=== PATIENT | female | born 1955 | race Caucasian/White ===

== ENCOUNTER → 2016-04-06 | Outpatient (CLI) | payer OTHER ==
[~2016-04-06] MED LIST: ALBUAER19 INH; CHOL2000; FLUT0.0529 NAE
--- NOTE | 2016-04-06 15:58 | MAMMOGRAPHY REPORT ---
BILATERAL DIGITAL SCREENING MAMMOGRAM TOMOSYNTHESIS WITH CAD: 04/06/2016 CLINICAL HISTORY: Routine screening. Patient has no complaints. TECHNIQUE: Breast tomosynthesis in addition to standard 2D mammography was performed. Current study was also evaluated with a Computer Aided Detection (CAD) system. COMPARISON: Comparison is made to exams dated: 04/04/2015 mammogram, 04/03/2014 mammogram, 04/11/2014 ultrasound, 04/02/2013 mammogram, 03/09/2012 mammogram, and 03/01/2011 mammogram - [facility]. BREAST COMPOSITION: The tissue of both breasts is almost entirely fatty. FINDINGS: No suspicious mass, architectural distortion or cluster of microcalcifications is seen. IMPRESSION: ACR BI-RADS CATEGORY 1: NEGATIVE There is no mammographic evidence of malignancy. A 1 year screening mammogram is recommended. The p atient will receive written notification of the results. Approximately 10% of breast cancers are not detected with mammography. A negative mammographic repor t should not delay biopsy if a clinically suggestive mass is present. Anika sellers/bert:04/06/2016 15:52:52 General Worker: Mikayla SWAIN(Lucy)(M), [facility] letter sent: Normal 1/2 BI-RADS Code: ACR BI-RADS Category 1: Negative
== END | disposition home or self-care (01) ==
LOC: C.MAMM 13:24
PROVIDERS: ATTEND Family Medicine
DX: Z12.31 Encounter for screening mammogram for malignant neoplasm of breast (principal)

== ENCOUNTER → 2016-07-19 | Outpatient (CLI) | payer OTHER ==
[2016-07-19 12:33] LABS: BLOOD UREA NITROGEN 16 mg/dl (7-18); CARBON DIOXIDE 28 mmol/L (21-32); CHLORIDE 105 mmol/L (98-107); CREATININE 0.69 mg/dl (0.60-1.20); GLUCOSE 110 mg/dl (70-99); POTASSIUM 4.5 mmol/L (3.5-5.1); SODIUM 141 mmol/L (136-145)
[2016-07-19 12:34] LABS: ESTIMATED AVERAGE GLUCOSE 154 mg/dl; HA1C FLAG Normal (Normal)
[2016-07-19 12:41] LABS: CALCIUM 9.3 mg/dl (8.5-10.1)
== END | disposition home or self-care (01) ==
LOC: C.LABBFT 10:35
PROVIDERS: ATTEND Family Medicine
DX: E11.9 Type 2 diabetes mellitus without complications (principal)

== ENCOUNTER → 2016-12-13 | Outpatient (CLI) | payer OTHER ==
[2016-12-13 17:40] LABS: BLOOD UREA NITROGEN 13 mg/dl (7-18); BUN/CREATININE RATIO 20.4 (10-20); CALCIUM 9.3 mg/dl (8.5-10.1); CARBON DIOXIDE 29 mmol/L (21-32); CHLORIDE 103 mmol/L (98-107); CREATININE 0.64 mg/dl (0.60-1.20); GLUCOSE 185 mg/dl (70-99); SODIUM 137 mmol/L (136-145)
[2016-12-13 18:09] LABS: ESTIMATED AVERAGE GLUCOSE 151 mg/dl; HA1C FLAG Normal (Normal)
== END | disposition home or self-care (01) ==
LOC: C.LABBFT 12:59
PROVIDERS: ATTEND Family Medicine
DX: E11.9 Type 2 diabetes mellitus without complications (principal)

== ENCOUNTER → 2017-04-07 | Outpatient (CLI) | payer OTHER ==
--- NOTE | 2017-04-08 14:42 | MAMMOGRAPHY REPORT ---
BILATERAL DIGITAL SCREENING MAMMOGRAM TOMOSYNTHESIS WITH CAD: 04/07/2017 CLINICAL HISTORY: Routine screening. Patient has no complaints. TECHNIQUE: Breast tomosynthesis in addition to standard 2D mammography was performed. Current study was also evaluated with a Computer Aided Detection (CAD) system. COMPARISON: Comparison is made to exams dated: 04/06/2016 mammogram, 04/04/2015 mammogram, 07/23/2014 ma mmogram, 07/23/2014 ultrasound biopsy, 04/03/2014 mammogram, and 04/02/2013 mammogram - [facility]. BREAST COMPOSITION: The tissue of both breasts is almost entirely fatty. FINDINGS: There are benign calcifications in both breasts. No suspicious mass, architectural distor tion or cluster of microcalcifications is seen. IMPRESSION: ACR BI-RADS CATEGORY 2: BENIGN There is no mammographic evidence of malignancy. A 1 year screening mammogram is recommended. The pa tient will receive written notification of the results. Approximately 10% of breast cancers are not detected with mammography. A negative mammographic report should not delay biopsy if a clinically suggestive mass is present. Anika Valiente M.D. ay/:04/07/2017 18:41:31 Repair Operator: Mikayla Schrader, [facility] letter sent: Normal 1/2 BI-RADS Code: ACR BI-RADS Category 2: Benign
== END | disposition home or self-care (01) ==
LOC: C.MAMM 13:39
PROVIDERS: ATTEND Nurse Practitioner
DX: Z12.31 Encounter for screening mammogram for malignant neoplasm of breast (principal)

== ENCOUNTER → 2017-05-31 | Outpatient (CLI) | payer OTHER ==
[2017-05-31 17:56] LABS: BLOOD UREA NITROGEN 15 mg/dl (7-18); CALCIUM 8.9 mg/dl (8.5-10.1); CARBON DIOXIDE 29 mmol/L (21-32); CREATININE 0.65 mg/dl (0.60-1.20); GLUCOSE 192 mg/dl (70-99); POTASSIUM 3.9 mmol/L (3.5-5.1); SODIUM 136 mmol/L (136-145)
[2017-05-31 17:59] LABS: CHOLESTEROL 209 mg/dl (0-200); LDL CHOLESTEROL CALCULATED 86 mg/dl
== END | disposition home or self-care (01) ==
LOC: C.LABPVFM 13:58
PROVIDERS: ATTEND Nurse Practitioner
DX: E11.9 Type 2 diabetes mellitus without complications (principal); E78.00 Pure hypercholesterolemia, unspecified

== ENCOUNTER 2023-08-11 07:37 | Inpatient (IN) ==
--- NOTE | 2023-08-11 08:26 | XRay Report ---
XR chest 1V portable CLINICAL HISTORY: Sepsis TECHNIQUE: Single frontal radiograph of the chest was obtained. Comparison: Comparison is made to chest radiograph 02/13/2023 FINDINGS: No lines and tubes are seen. The cardiomediastinal silhouette is normal. The lungs are clear. No evid ence of pleural effusion or pneumothorax. IMPRESSION: No acute abnormalities and in particular no radiographic evidence of pneumonia. ACT 112: Negative or not required by law. Electronically signed by: Efraín Land M.D. 08/11/2023 8:24 AM
--- NOTE | 2023-08-11 08:29 | Emergency Department Note ---
Impression & Plan Cellulitis of left leg, Bacteremia ED Provider Note HISTORY OF PRESENT ILLNESS: Patient is a 68-year-old female presenting with worsening cellulitis on her left lower extremity. Patient was diagnosed with cellulitis 4 days ago. She started on Keflex. She had positive blood cultures during her workup and was called back to the emergency room yesterday. Her white blood cell count was considered to be negative and she was given a dose of IV antibiotics and sent home. Reports that last night she developed worsening pain in her left medial thigh and noticed some erythema and streaking up her leg this morning. She had a fever 3 days ago. Reports her temperature was 99 this morning. She took another dose of Keflex this morning. She put IcyHot on the medial side with some improvement in her symptoms. She denies any nausea or vomiting. Reports feeling rundown and generally unwell. ROS: as above PHYSICAL EXAM: Constitutional: Patient appears in no acute distress. HENT: Head: Normocephalic and atraumatic. Eyes: EOMI, PERRL Mouth/Throat: Mucous membranes moist. Neck: Trachea midline. Neck supple. Cardiovascular: Bradycardic with regular rhythm. No murmurs, rubs or gallops. Intact distal pulses. Pulmonary/Chest: No respiratory distress. Breath sounds clear and equal bilaterally. No wheezes or rales. Abdominal: Abdomen soft, no tenderness, rebound or guarding. Musculoskeletal: No edema, tenderness or deformity noted. Skin: Warm and dry. Circular area of erythema and swelling to the left anterior patterson. There is lymphangitic streaking up the medial left lower leg, medial knee and medial upper thigh. Area is warm to touch. Intact DP/PT pulses. Psychiatric: Appropriate mood and affect for situation. Neurological: Alert and keenly responsive. CN II-XII grossly intact, moving all extremities equally and fully. MDM: - Vitals signs showed hypertension - History obtained via patient. History as above. - Chronic conditions affecting care: DM-2; vitamin D deficiency; HLD - Differential diagnoses include, but are not limited to: bacteremia; cellulitis; DVT; lymphedema - Order placed for continuous cardiac monitoring. At this time, monitor showed rate of 59 bpm with normal sinus rhythm, per my interpretation. - External medical records reviewed. Patient has been seen multiple times in the last 3 days in the emergency department. Yesterday she only had 1 culture that was growing gram-positive bacilli. - EKG interpreted by myself showed normal sinus rhythm. Rate bradycardic at 49 bpm. QT 423. No acute ischemic changes. - Laboratory workup interpreted by myself showed normal WBC; normal PT/INR; stable electrolytes; normal procalcitonin; normal troponin; normal lactate - Blood cultures obtained - CXR negative for pneumonia, per my interpretation - VBG normal - UA negative - On review of patient's chart, blood cultures obtained on 08/08/2023 grew gram- positive bacilli in 2 out of 2 bottles. - IV zosyn ordered - Discussion was had with case packer about patient's case and need for admission - [facility] Hospitalist, Dr. Escobar, consulted for admission - [facility]. ASSESSMENT AND PLAN: Diagnosis: left leg cellulitis; bacteremia Plan: admit Past Med/Surg History Problem List (Updated 08/11/23 @ 09:49 by Orquidea Machuca MD) Bacteremia (Acute) Cellulitis of left leg (Acute) Abnormal laboratory test result (Acute) Cellulitis (Acute) Pain and swelling of left lower extremity (Acute) Cellulitis of left lower extremity (Acute) Left shoulder pain Statin declined Hx of Lyme disease Hyperlipidemia refuses meds Fallen arches Foot pain, bilateral Tinnitus Fatigue Diverticula of colon History of diverticulitis Vitamin D deficiency (Chronic) Goiter diffuse, nontoxic (Chronic) Gait disorder (Chronic) Extrinsic asthma (Chronic) Diabetes mellitus (Chronic) refuses meds Cervical spondylosis without myelopathy (Chronic) Allergic rhinitis (Chronic) Ocular migraine Abdominal pain Medical History Umbilical hernia Vertigo takes meclizine nightly for vertigo Lyme disease Diabetes pt states does not take metformin, states diet controlled Ocular migraine Asthma mild- uses inhalers occasionally- mostly seasonal allergy induced Diverticulosis Surgical History History of tubal ligation History of hysterectomy Family History Sister Diabetes Grandmother Diabetes Mother Hypertension Father Lymphoma Denies family history of Ovarian cancer Prostate cancer Myocardial infarction Breast cancer Colorectal cancer Social History Smoking Status: Never smoker Second Hand Exposure: No; Do You Dip or Chew Tobacco: No; Hx Alcohol Use: No Hx Substance Use: No Preferred Language: Frisian Communication Ability: Effective Visual Impairment: Limited Hearing Ability: Normal Internet Marketing Director Required: No Beliefs That Will Affect Care: None marital status: Current Living Situation: Spouse current occupational status: retired How many Children do You have: 2 Feels Safe at Home: Yes Childhood Exposure to Second-Hand Smoke: No Diet: regular caffeine: Yes (coffee) during the past year weight has: remained stable Dental Care, Regularly: Yes Physical Activity Frequency: Daily Physical Activity Frequency Comment: Walking Seatbelt Use: always Sunscreen Use: Yes (sometimes) Assistive Devices: Glasses Allergies Allergies Allergy/AdvReac Type Severity Reaction Status Date / Time codeine AdvReac Unknown NAUSEA Verified 08/10/23 12:24 Home Meds Home Medications Medication Instructions Recorded Confirmed cholecalciferol (vitamin D3) 125 5,000 units PO QPM 11/28/18 08/10/23 mcg (5,000 unit) capsule magnesium 250 mg tablet 500 mg PO QPM 06/08/21 08/10/23 acetaminophen 500 mg tablet 500 mg PO QID PRN Pain 08/18/21 08/10/23 thiamine HCl (vitamin B1) 500 mg 500 mg PO DAILY 12/22/21 08/10/23 tablet cephalexin 500 mg capsule 500 mg PO Q6H 08/10/23 08/10/23 meclizine 25 mg tablet 25 mg PO TID PRN vertigo 08/10/23 08/10/23 Previous Rx's Medication Instructions Recorded fluticasone propionate 50 2 spray intranasal QPM #16 grams 12/23/22 mcg/actuation nasal spray,suspension albuterol sulfate 2.5 mg/3 mL 2.5 mg (3 mL) inhalation QID PRN 02/15/23 (0.083 %) solution for nebulization shortness of breath or wheezing #90 mL albuterol sulfate 90 mcg/actuation 2 inh inhalation QID PRN shortness 02/15/23 aerosol inhaler (Ventolin HFA) of breath or wheezing #8.5 grams Results & Data (ED) Vital Signs Vital Signs - 24 hr 08/11/23 07:56 08/11/23 08:31 08/11/23 08:31 Temperature 36.4 C L Temperature Source Skin Pulse Rate 50 L 60 Pulse Rate [Apical] 49 L Respiratory Rate 20 18 18 Respiratory Effort / Characteristics Non-Labored Spontaneous Non-Labored Spontaneous Respiratory Depth Normal Normal Respiratory Pattern Regular Regular Blood Pressure 154/71 H Blood Pressure [Right Arm] 128/59 L Blood Pressure Mean 98 Blood Pressure Mean [Right Arm] 82 Blood Pressure Position [Right Arm] Lying Pulse Oximetry 97 97 96 Oxygen Delivery Method Room Air Room Air Room Air Sepsis Recent Fever Within 48 Hours No Sepsis New/Unexplained Change in Mental Status N/A Sepsis Action Taken by Nursing No Action Required 08/11/23 08:31 08/11/23 09:00 Temperature Temperature Source Pulse Rate 49 L Pulse Rate [Apical] 55 L Respiratory Rate 18 Respiratory Effort / Characteristics Non-Labored Spontaneous Respiratory Depth Normal Respiratory Pattern Regular Blood Pressure Blood Pressure [Right Arm] 147/86 H Blood Pressure Mean Blood Pressure Mean [Right Arm] 106 Blood Pressure Position [Right Arm] Lying Pulse Oximetry 99 Oxygen Delivery Method Room Air Sepsis Recent Fever Within 48 Hours Sepsis New/Unexplained Change in Mental Status Sepsis Action Taken by Nursing Laboratory Data 08/11/23 08:20 08/11/23 08:20 Lab Results 08/11/23 08/11/23 Range/Units 08:20 09:19 WBC 8.00 (4.8-10.8) K/ul RBC 3.73 L (4.20-5.40) M/uL Hgb 11.9 L (12.0-16.0) g/dl Hct 35.2 L (37.0-47.0) % MCV 94.4 (80.0-100.0) fL MCH 31.9 (25.0-34.0) pg MCHC 33.8 (32.0-36.0) g/dL RDW Std Deviation 47.9 H (36.4-46.3) fL RDW Coeff of Chuck 13.8 (11.5-14.5) % Plt Count 276 (130-400) K/uL MPV 8.8 L (9.4-12.4) fL Immature Gran % (Auto) 0.4 % Neut % (Auto) 62.8 % Lymph % (Auto) 25.5 % [place] % (Auto) 9.4 % Eos % (Auto) 1.3 % Baso % (Auto) 0.6 % Neut # (Auto) 5.03 (1.40-6.50) K/uL Lymph # (Auto) 2.04 (1.20-3.40) K/uL [place] # (Auto) 0.75 H (0.11-0.59) K/uL Eos # (Auto) 0.10 (0.00-0.50) K/uL Baso # (Auto) 0.05 (0.00-0.20) K/uL Immature Gran # (Auto) 0.03 (0.01-0.20) K/uL PT 10.7 (9.0-12.0) Seconds INR 1.0 (0.9-1.1) VBG pH 7.41 (7.36-7.41) VBG pCO2 47 (38-50) mmHg VBG pO2 29 mmHg VBG HCO3 30 mmol/L VBG O2 Saturation < 60.0 % VBG Base Excess 4.3 mEq/L Sodium 138 (136-145) mmol/L Potassium 4.2 (3.5-5.1) mmol/L Chloride 104 (98-107) mmol/L Carbon Dioxide 26 (21-32) mmol/L Anion Gap 8 (3-11) BUN 13 (6-23) mg/dl Creatinine 0.49 L (0.6-1.2) mg/dl Est Cr Clr Drug Dosing 106.6 ml/min Est GFR ( Amer) 115.2 ml/min Est GFR (Non-Af Amer) 99.4 ml/min BUN/Creatinine Ratio 26.5 H (10-20) Glucose 141 H (70-99(Fasting)) mg/dl Lactate 1.0 (0.4-2.0) mmol/L Calcium 9.4 (8.6-10.3) mg/dl Magnesium 2.0 (1.7-2.4) mg/dl Total Bilirubin 0.5 (0.2-1.0) mg/dl Direct Bilirubin 0.1 (0-0.2) mg/dl AST 17 (13-39) U/L ALT 13 (7-52) U/L Alkaline Phosphatase 65 (34-104) U/L Troponin I High Sens 4.8 (0-14) pg/ml Total Protein 7.4 (6.0-8.3) gm/dl Albumin 4.4 (3.4-5.0) gm/dl Procalcitonin 0.23 (0-0.5) ng/ml Urine Color Yellow Urine Appearance Clear (Clear) Urine pH 6.0 (4.5-7.5) Ur Specific [place] 1.013 (1.000-1.030) Urine Protein Negative (Negative) Urine Glucose (UA) Negative (Negative) Urine Ketones Negative (Negative) Urine Blood Negative (Negative) Urine Nitrite Negative (Negative) Urine Bilirubin Negative (Negative) Urine Urobilinogen Negative (Negative) Ur Leukocyte Esterase Negative (Negative) Administered Medications Discontinued Medications Piperacillin Sod/Tazobactam Sod (Zosyn) 4.5 gm in 100 mls @ 200 mls/hr IV NOW ONE Stop: 08/11/23 10:01 Last Admin: 08/11/23 09:48 Dose: 200 mls/hr Documented By: SHEILA Imaging Data Radiologist's Impression: Chest X-Ray 08/11/23 07:43 XR chest 1V portable CLINICAL HISTORY: Sepsis TECHNIQUE: Single frontal radiograph of the chest was obtained. Comparison: Comparison is made to chest radiograph 02/13/2023 FINDINGS: No lines and tubes are seen. The cardiomediastinal silhouette is normal. The lungs are clear. No evidence of pleural effusion or pneumothorax. IMPRESSION: No acute abnormalities and in particular no radiographic evidence of pneumonia. ACT 112: Negative or not required by law. Electronically signed by: Efraín Land M.D. 08/11/2023 8:24 AM Discharge Plan Visit Data Chief Complaint: Infection Stated Complaint: cellulitis ED Provider: Orquidea Machuca Discharge Problem: Cellulitis of left leg, Bacteremia Forms Stand Alone Forms: My [facility] Prescriptions Prescriptions: No Action albuterol sulfate [Ventolin HFA] 90 mcg/actuation HFA aerosol inhaler 2 inh INH QID PRN (Reason: shortness of breath or wheezing) Qty: 8.5 3RF albuterol sulfate 2.5 mg /3 mL (0.083 %) solution for nebulization 2.5 mg inhalation QID PRN (Reason: shortness of breath or wheezing) Qty: 90 3RF cholecalciferol (vitamin D3) 5,000 unit capsule 5,000 units PO QPM fluticasone propionate 50 mcg/actuation spray,suspension 2 spray INTNAS QPM Qty: 16 11RF Rx Instructions: administer into each nostril magnesium 250 mg tablet 500 mg PO QPM thiamine HCl (vitamin B1) 500 mg tablet 500 mg PO DAILY acetaminophen 500 mg Tablet 500 mg PO QID PRN (Reason: Pain) meclizine 25 mg tablet 25 mg PO TID PRN (Reason: vertigo) Rx Instructions: 25 mg PO TAKE 1 TABLET DAILY, MAY INCREASE TO 3 TIMES DAILY IF NEEDED FOR VERTIGO. PRN; cephalexin 500 mg capsule 500 mg PO Q6H Rx Instructions: Start Date 08/09/23 x 10 day supply Referrals Referrals: Julieta Marino CRNP [Primary Care Provider] -
[2023-08-11 08:42] LABS: Base Excess VBG 4.3 mEq/L; HCO3 VBG 30 mmol/L; Oxygen Saturation VBG < 60.0 %; PCO2 VBG 47 mmHg (38-50); PO2 VBG 29 mmHg; pH VBG 7.41 (7.36-7.41)
[2023-08-11 08:46] LABS: Basophils # (auto) 0.05 K/uL (0.00-0.20); Basophils % (auto) 0.6 %; Eosinophils % (auto) 1.3 %; Hematocrit (blood only) 35.2 % (37.0-47.0); Hemoglobin 11.9 g/dl (12.0-16.0); Immature Granulocytes # (auto) 0.03 K/uL (0.01-0.20); Immature Granulocytes % (auto) 0.4 %; Lymphocytes # (auto) 2.04 K/uL (1.20-3.40); Lymphocytes % (auto) 25.5 %; Mean Corpuscular Hemoglobin 31.9 pg (25.0-34.0); Mean Corpuscular Hgb Conc 33.8 g/dL (32.0-36.0); Mean Corpuscular Volume 94.4 fL (80.0-100.0); Mean Platelet Volume 8.8 fL (9.4-12.4); Monocytes # (auto) 0.75 K/uL (0.11-0.59); Monocytes % (auto) 9.4 %; Neutrophils # (auto) 5.03 K/uL (1.40-6.50); Neutrophils % (auto) 62.8 %; Platelet Count 276 K/uL (130-400); RDW Coefficient of Variation 13.8 % (11.5-14.5); RDW Standard Deviation 47.9 fL (36.4-46.3); Red Blood Count 3.73 M/uL (4.20-5.40)
[2023-08-11 09:12] LABS: Prothrombin Time 10.7 Seconds (9.0-12.0)
[2023-08-11 09:13] LABS: Albumin Level 4.4 gm/dl (3.4-5.0); BUN Creatinine Ratio 26.5 (10-20); Bilirubin Direct 0.1 mg/dl (0-0.2); Bilirubin,Total 0.5 mg/dl (0.2-1.0); Calcium 9.4 mg/dl (8.6-10.3); Creatinine Clr Calc Pharmacy 106.6 ml/min; Est GFR (African American) 115.2 ml/min; Est GFR (Non-African American) 99.4 ml/min; Potassium 4.2 mmol/L (3.5-5.1); Total Protein 7.4 gm/dl (6.0-8.3)
[2023-08-11 09:19] LABS: Troponin I High Sensitivity 4.8 pg/ml (0-14)
[2023-08-11 09:41] LABS: Appearance Urine Clear (Clear); Bilirubin Urine Negative (Negative); Blood Urine Negative (Negative); Color Urine Yellow; Glucose Urine UA Negative (Negative); Ketones Urine Negative (Negative); Leukocyte Esterase Urine Negative (Negative); Nitrite Urine Negative (Negative); Protein Urine Negative (Negative); Specific Gravity Urine 1.013 (1.000-1.030); Urobilinogen Urine Negative (Negative)
[2023-08-11] MEDS: PIPERACILLIN/TAZOBACTAM 4.5 GM/100 ML BAG IV ONE (09:48)
--- NOTE | 2023-08-11 09:58 | History & Physical Report ---
Date of Service August 11, 2023 Assessment & Plan (1) Cellulitis of left leg: Plan: Patient reportedly hit her left lower leg on a shopping cart on 08/07, then developed erythema and warmth with lymphangitic streaking Hx of LLE cellulitis without broken skin CRP and ESR elevated Zosyn 4.5 g IV x 1 in the ED Blood culture drawn on 08/07 growing gram (+) bacilli Resulted in cornybacterium; no sensitivities to follow; ?contaminant Will cover empirically with vancomycin IV q24h for now Follow blood cultures drawn on 08/10 Acetaminophen as needed for pain/fever A.m. CBC, BMP, CRP, Mag (2) Bacteremia: Plan: No leukocytosis; afebrile Procalcitonin WNL Lactate WNL Unclear if blood cultures were contaminant, but will cover with vancomycin (as above) (3) History of shingles: Plan: Patient reports history of shingles x 3 on the left side of her body While current lymphangitic streaking does not follow a characteristic dermatome, shingles remains in the DDx at this time Could elevate inflammatory markers, and patient reports she did not break her skin on the shopping cart (4) Diabetes: Plan: Last A1c at 6.9% on 07/25/2023 Patient has declined metformin and other DM drugs in the past (per review of wellness visit on 07/01/2023) Loose SSI while inpatient with target BSG range 110-140mg/dL, CF 50, carb ratio 15 T2DM diet BSG ACHS Adjust regimen as needed (5) Vertigo: Plan: Meclizine as needed Plan Disposition: Admit to [facility] Full code T2DM diet VTE PPx: Lovenox 40 mg SQ q24h History of Present Illness Chief Complaint: Cellulitis, left lower leg injury Primary Care Provider: LENA Wraner Sofia is a pleasant 68-year-old female with PMH of diabetes mellitus, vertigo, tinnitus, allergic rhinitis, asthma, HLD, and Lyme disease. She presented to the ED on 08/10 for worsening cellulitis on her left leg with new lymphangitic streaking up the leg. Patient initially developed erythema on her LLE after striking her leg on a shopping cart over the weekend. She denies any breaks in skin or open skin. The erythema then worsens and began to spread up the medial aspect of her left upper leg the evening of 08/09. She applied Biofreeze to the skin, which did help with her pain. She also reports she has been in the ED on 08/07 and 08/09 and received IV antibiotics at those times; blood cultures drawn on 08/07 grew gram-positive bacilli, and patient was called and told to come to the ED for IV antibiotics. Patient took 1 dose of Keflex this morning around 0 630; she does not take any regular medications in the mornings. All of her medications are as needed. She relays a history of left lower extremity cellulitis in the past, mainly on the dorsal aspect of her left foot. In the past she has not needed to break skin for it to develop. She also relays a history of shingles x 3 always occurring on the left side of her body; mainly on the stomach, but 1 episode on the left posterior scalp. Associated symptoms include 1 episode of fever on Tuesday 08/08; temperature of 100.5 F; associated achiness, nausea, and headache. Patient denies vomiting, and reports that taking 2 Tylenol alleviated the fever. She also endorses some right neck pain, but believes it is secondary to sleeping on it poorly. She took 2 Tylenol this morning as well for 7/10 neck pain. No difficulty swallowing. No throat closure. She characterizes the pain in her left leg as a dull, achy pain; 2/10 at present; only hurts when moving/palpating. Patient denies smoking, tobacco use, and recent alcohol use. Patient is mildly hypertensive at 147/86 and bradycardic at 55 bpm at time of admission; vitals otherwise stable. ED course: Zosyn 4.5 g IV ROS: Patient endorses fever, chills, STRINGER, right-sided neck pain, nausea, and mild erythema/pain in the left leg. Patient denies night-sweats, dizziness, lightheadedness with walking, difficulty swallowing, swelling of right neck/throat closure, chest pain, chest palpitations, SOB, cough, wheezing, abdominal pain, vomiting, diarrhea, change in urinary/bowel habits, dysuria, burning with urination, blood in the urine/stool, or numbness/tingling in the legs. Allergies Allergy/AdvReac Type Severity Reaction Status Date / Time codeine AdvReac Unknown NAUSEA Verified 08/10/23 12:24 Home Medications Medication Instructions Recorded Confirmed Type cholecalciferol (vitamin D3) 125 5,000 units PO QPM 11/28/18 08/11/23 History mcg (5,000 unit) capsule magnesium 250 mg tablet 500 mg PO QPM 06/08/21 08/11/23 History acetaminophen 500 mg tablet 500 mg PO QID PRN Pain 08/18/21 08/11/23 History thiamine HCl (vitamin B1) 500 mg 500 mg PO DAILY 12/22/21 08/11/23 History tablet fluticasone propionate 50 2 spray intranasal QPM #16 grams 12/23/22 08/11/23 Rx mcg/actuation nasal spray,suspension albuterol sulfate 2.5 mg/3 mL 2.5 mg (3 mL) inhalation QID PRN 02/15/23 08/11/23 Rx (0.083 %) solution for nebulization shortness of breath or wheezing #90 mL albuterol sulfate 90 mcg/actuation 2 inh inhalation QID PRN shortness 02/15/23 08/11/23 Rx aerosol inhaler (Ventolin HFA) of breath or wheezing #8.5 grams cephalexin 500 mg capsule 500 mg PO Q6H 08/10/23 08/11/23 History meclizine 25 mg tablet 25 mg PO TID PRN vertigo 08/10/23 08/11/23 History Past Med/Surg History Problem List (Updated 08/11/23 @ 11:49 by Khris Bain PA-C) History of shingles Diabetes pt states does not take metformin, states diet controlled Bacteremia (Acute) Cellulitis of left leg (Acute) Abnormal laboratory test result (Acute) Cellulitis (Acute) Pain and swelling of left lower extremity (Acute) Cellulitis of left lower extremity (Acute) Left shoulder pain Statin declined Hx of Lyme disease Hyperlipidemia refuses meds Fallen arches Foot pain, bilateral Tinnitus Fatigue Diverticula of colon History of diverticulitis Vitamin D deficiency (Chronic) Goiter diffuse, nontoxic (Chronic) Gait disorder (Chronic) Extrinsic asthma (Chronic) Diabetes mellitus (Chronic) refuses meds Cervical spondylosis without myelopathy (Chronic) Allergic rhinitis (Chronic) Ocular migraine Abdominal pain Medical History Umbilical hernia Vertigo takes meclizine nightly for vertigo Lyme disease Diabetes pt states does not take metformin, states diet controlled Ocular migraine Asthma mild- uses inhalers occasionally- mostly seasonal allergy induced Diverticulosis Surgical History History of tubal ligation History of hysterectomy Family History Sister Diabetes Grandmother Diabetes Mother Hypertension Father Lymphoma Denies family history of Ovarian cancer Prostate cancer Myocardial infarction Breast cancer Colorectal cancer Social History Smoking Status: Never smoker Second Hand Exposure: No; Do You Dip or Chew Tobacco: No; Hx Alcohol Use: No Hx Substance Use: No Preferred Language: Sammarinese Communication Ability: Effective Visual Impairment: Limited Hearing Ability: Normal Court Bailiff Required: No Beliefs That Will Affect Care: None marital status: Current Living Situation: Spouse current occupational status: retired How many Children do You have: 2 Feels Safe at Home: Yes Safety Concerns: Feels Safe At This Time Childhood Exposure to Second-Hand Smoke: No Diet: regular caffeine: Yes (coffee) during the past year weight has: remained stable Dental Care, Regularly: Yes Physical Activity Frequency: Daily Physical Activity Frequency Comment: Walking Seatbelt Use: always Sunscreen Use: Yes (sometimes) Assistive Devices: Glasses Review of Systems 2 Review of Systems: See HPI above Physical Exam 2 Physical Exam: General: no acute distress; pleasant affect; non-toxic appearing; well- nourished; cooperative; SpO2 97% on RA HEENT: normocephalic, atraumatic; no scleral icterus; PERRLA; moist mucus membrane; vision and hearing grossly intact Neck: supple; no lymphadenopathy; trachea midline; right side of neck is NTP Skin: warm, dry without signs of tenting; no cyanosis CV: chest wall NTP; RRR; S1/S2 normal; no murmurs/rubs/gallops; pulses intact and symmetric at radial, DP, and PT Lungs: no acute respiratory distress; symmetrical chest wall expansion; clear breath sounds across all lung martins w/o adventitious sounds; no wheezing ABD: Soft, NTP; BS present; no rebound/guarding; no distention MSK: no tics or fasciculations; patient demonstrates ability to wiggle toes, plantarflex/dorsiflex bilaterally Left leg: LLE is warm to touch, with erythema and lymphangitic streaking up the medial side of the leg (see photos below); left foot is neurovascularly intact Right leg: Unremarkable Neuro: A&Ox3; normal mood and affect; fluent speech; no focal deficits; sensation intact and symmetric in the LEs b/l Results & Data Results & Data Vital Signs (Past 12 Hours) Vital Signs Temp Pulse Pulse Resp BP BP Pulse Ox 08/11/23 09:00 55 L 18 147/86 H 99 08/11/23 08:31 49 L 08/11/23 08:31 60 18 96 08/11/23 08:31 49 L 18 128/59 L 97 08/11/23 07:56 36.4 C L 50 L 20 154/71 H 97 O2 Del Method 08/11/23 09:00 Room Air 08/11/23 08:31 08/11/23 08:31 Room Air 08/11/23 08:31 Room Air 08/11/23 07:56 Room Air Laboratory Results Abnormal lab results 08/11/23 Range/Units 08:20 RBC 3.73 L (4.20-5.40) M/uL Hgb 11.9 L (12.0-16.0) g/dl Hct 35.2 L (37.0-47.0) % RDW Std Deviation 47.9 H (36.4-46.3) fL MPV 8.8 L (9.4-12.4) fL [place] # (Auto) 0.75 H (0.11-0.59) K/uL Creatinine 0.49 L (0.6-1.2) mg/dl BUN/Creatinine Ratio 26.5 H (10-20) Glucose 141 H (70-99(Fasting)) mg/dl Diagnostic Findings Chest X-Ray 08/11/23 07:43 XR chest 1V portable CLINICAL HISTORY: Sepsis TECHNIQUE: Single frontal radiograph of the chest was obtained. Comparison: Comparison is made to chest radiograph 02/13/2023 FINDINGS: No lines and tubes are seen. The cardiomediastinal silhouette is normal. The lungs are clear. No evidence of pleural effusion or pneumothorax. IMPRESSION: No acute abnormalities and in particular no radiographic evidence of pneumonia. ACT 112: Negative or not required by law. Electronically signed by: Efraín Land M.D. 08/11/2023 8:24 AM ECG Additional Comments: ECG revealed sinus bradycardia at 49 bpm; QTc 381 No prior EKGs for comparison Code Status & VTE Plan Code Status Full code VTE Prophylaxis Plan VTE Prophylaxis will be ordered: Yes Supervising Physician Co-Signing Physician Notes Patient was seen and examined independently I discussed the case with Khris HARGROVE I reviewed pertinent past medical social family history and also the plan of care and agree with the plan of care. Patient presents after third ER visit after having some erythema on her leg after striking a shopping cart approximately 5 days ago. She did have blood cultures positive for gram-positive which eventually grew Corynebacterium. Patient has systemic symptoms of fevers or chills consistent with possible bacteremia. Patient was initially given Zosyn in the ER but when corynebacterium did result changed to vancomycin. This is an atypical presentation of cellulitis as the patient claims her skin was not broken it is streaking in a linear fashion which was outlined with a marker in the emergency department. Otherwise she has no peripheral stigmata of endocarditis no tender joints splinter hemorrhages or new murmurs. Continue antibiotic care following culture results consideration of echocardiogram Any exceptions will be noted below PG Care Time/CCT Total # of Minutes Spent Total Time Spent with Patient: Total time spent is greater than 50% in coordination of care (as documented) at patient's floor/unit and/or counseling patient: Coding [place] [address] INT INP/OBS CARE 2/55MIN Patient Type Established Medical Decision Making Moderate Complexity Diagnoses Cellulitis of left leg L03.116 Bacteremia R78.81 History of shingles Z86.19 Diabetes E11.9 Vertigo R42
[2023-08-11 10:32] LABS: C Reactive Protein 10.36 mg/dl (0-0.5)
--- NOTE | 2023-08-11 10:57 | Electrocardiogram Report ---
Test Reason : Blood Pressure : / mmHG Vent. Rate : 049 BPM Atrial Rate : 049 BPM P-R Int : 184 ms QRS Dur : 094 ms QT Int : 422 ms P-R-T Axes : 055 014 028 degrees QTc Int : 381 ms Sinus bradycardia Otherwise normal ECG When compared with ECG of 08-SEP-1999 10:56, No significant change was found Confirmed by Rancho Hall ([id number]) on 08/11/2023 10:57:14 AM Referred By: REFERRED SELF Confirmed By:Rancho Hall
[2023-08-11] MEDS ORDERED: GLUCOSE 40% GEL 15 GM TUBE PO PRN (13:40)
[2023-08-11] MEDS ORDERED: ALBUTEROL HFA 8 GM INHALER INH PRN (13:40)
[2023-08-11] MEDS ORDERED: GLUCOSE 10 TAB/TUBE PO PRN (13:40)
[2023-08-11] MEDS ORDERED: ONDANSETRON INJ 2 MG/ML 2 ML VIAL IV PRN (13:40)
[2023-08-11] MEDS ORDERED: ACETAMINOPHEN 325 MG TAB PO PRN (13:40)
[2023-08-11] MEDS ORDERED: CARBOHYDRATES FOR HYPOGLYCEMIA PO PRN (13:40)
[2023-08-11] MEDS ORDERED: ALBUTEROL 0.083% NEBU SOLN 3 ML VIAL INH PRN (13:40)
[2023-08-11] MEDS ORDERED: MELATONIN 3 MG TAB PO PRN (13:40)
[2023-08-11] MEDS ORDERED: GLUCAGON FOR INJ 1 MG VIAL SQ PRN (13:40)
[2023-08-11] MEDS ORDERED: MECLIZINE HCL 25 MG TAB PO PRN (13:40)
[2023-08-11] MEDS ORDERED: DEXTROSE 50% 50 ML SYRINGE IV PRN (13:40)
[2023-08-11] MEDS: INSULIN ASPART PER UNIT CHARGE SC SCH (14:29)
[2023-08-11] MEDS ORDERED: VANCOMYCIN CONSULT ACTIVE PRN (14:42)
[2023-08-11] MEDS: PIPERACILLIN/TAZOBACTAM 4.5 GM in DEXTROSE 5% MINI-B 100 ML IV SCH (14:53)
[2023-08-11] MEDS: VANCOMYCIN HCL 2,000 MG in SODIUM CHLORIDE 0.9% 500 ML IV ONE (18:17)
--- NOTE | 2023-08-11 19:08 | Pharmacy Report ---
Pharmacy PK ABX Note - Date of Service August 11, 2023 - Assessment and Plan Assessment * Ms Isbell is a 68 year old F receiving vancomycin for treatment of L leg cellulitis, bacteremia. * Pertinent microbiologic data includes: BCx from 08/07 growing Corynebacterium sp. Plan Vancomycin * Loading dose: 2000 mg IV x 1 * Maintenance dose: 1500 mg IV every 12 hours * Regimen is predicted to achieve target AUC/JESI of 400-600 mg/L.hr * Will check a vanc level in 1-2 days, close to steady state Pharmacy will continue to follow and will adjust dose/frequency as necessary. Thank you. Pharmacy has transitioned to AUC monitoring for vancomycin. AUC/JESI is the pre ferred PK/PD target and is associated with decreased risk of nephrotoxicity compared to traditional trough targets.
[2023-08-11] MEDS: diphenhydrAMINE 50 MG/ML VIAL IV STA (19:50)
[2023-08-11] MEDS: FLUTICASONE PROPIONATE NA SPR 16 GM BTL SCH (20:09)
[2023-08-11] MEDS: MAGNESIUM OXIDE 400 MG TAB PO SCH (20:09)
[2023-08-11] MEDS: ENOXAPARIN INJ 40 MG/0.4 ML SYR SQ SCH (20:09)
--- NOTE | 2023-08-11 20:30 | Communication Note ---
Date of Service: August 11, 2023 Called to bedside, patient started having itching and redness of her face after starting vancomycin. Approximately 1 hour after starting vancomycin patient started having these complaints. Received 232/540 ml of the vancomycin. Was running at 200 mL an hour. Examined patient bedside and she had facial erythema. Heart sounds: Regular rate and rhythm without murmurs or mumps. Lung sounds clear to auscultation bilaterally. -Will stop IV infusion of vancomycin. -Gave 25 mg IV Benadryl. -Patient is here for cellulitis, will get MRSA swab. -If MRSA swab is negative. -Will switch vancomycin to daptomycin.
[2023-08-11] MEDS: DAPTOmycin 250 MG in SYRINGE 0 ML IV SCH (23:01)
[2023-08-12] MEDS ORDERED: VANCOMYCIN HCL 1,500 MG in SODIUM CHLORIDE 0.9% 500 ML IV SCH (06:00)
[2023-08-12 08:08] LABS: Basophils # (auto) 0.05 K/uL (0.00-0.20); Basophils % (auto) 0.6 %; Eosinophils # (auto) 0.26 K/uL (0.00-0.50); Eosinophils % (auto) 3.1 %; Hematocrit (blood only) 34.7 % (37.0-47.0); Hemoglobin 11.8 g/dl (12.0-16.0); Immature Granulocytes # (auto) 0.01 K/uL (0.01-0.20); Immature Granulocytes % (auto) 0.1 %; Lymphocytes # (auto) 3.23 K/uL (1.20-3.40); Lymphocytes % (auto) 38.7 %; Mean Corpuscular Hemoglobin 31.6 pg (25.0-34.0); Mean Corpuscular Volume 92.8 fL (80.0-100.0); Mean Platelet Volume 8.8 fL (9.4-12.4); Monocytes % (auto) 9.6 %; Neutrophils # (auto) 3.99 K/uL (1.40-6.50); Neutrophils % (auto) 47.9 %; Platelet Count 303 K/uL (130-400); RDW Coefficient of Variation 13.5 % (11.5-14.5); RDW Standard Deviation 46.3 fL (36.4-46.3); Red Blood Count 3.74 M/uL (4.20-5.40); White Blood Count 8.34 K/ul (4.8-10.8)
[2023-08-12 08:36] LABS: BUN Creatinine Ratio 22.2 (10-20); C Reactive Protein 8.61 mg/dl (0-0.5); Calcium 9.4 mg/dl (8.6-10.3); Creatinine Clr Calc Pharmacy 99.1 ml/min; Est GFR (African American) 111.6 ml/min; Est GFR (Non-African American) 96.3 ml/min; Potassium 4.5 mmol/L (3.5-5.1)
[2023-08-12] MEDS ORDERED: DAPTOmycin 250 MG in SYRINGE 0 ML IV SCH (09:00)
--- NOTE | 2023-08-12 13:28 | XCELERA ---
[id number]
--- NOTE | 2023-08-12 13:47 | Infectious Disease Consult ---
Date of Consultation August 12, 2023 Assessment & Plan (1) Cellulitis of left leg: (2) Positive blood culture: (3) Diabetes: Plan 68yo F with h/o diabetes, asthma, Lyme disease, HLD, vertigo who presented on 08/10 with worsening left leg redness with new lymphangitic streaking up the leg. She was seen in the ED on 08/07 and was given keflex. She was also brought back to the ED due to BCX positive, which was GPR. Given likely contamination, she was sent back home, but repeat BCX done and then given dapto/CTX. Here she has been afebrile, vss. WBC wnl. Cr 0.49, LFT wnl. ESR 37, CRP 10.36. UA negative. MRSA screen neg. CXR negative. TTE negative for vegetations. She was started on vancomycin, but developed redness and itching of face when it was started so changed to daptomycin. ID consulted 08/11. Repeat BCX were drawn before she received vancomycin, and these cultures were ne gative. Coryne therefore is most likely contaminant. Patient currently improving on daptomycin. # LLE cellulitis # BCX with Corynebacterium likely contaminant # h/o diabetes - continue on daptomycin given significant improvement on this therapy - when shes ready for discharge, can change abx to doxycycline 100mg PO bid to complete 5-7 days total (start 08/10) ID will discontinue active follow up at this time. Please do not hesitate to reconsult the Infectious Diseases service as needed. Vicenta Nava MD [facility], Division of Infectious Diseases [facility]: [phone] Consultation Information Consultation was provided via telemedicine using two-way real-time interactive telecommunication between the patient and the telemedicine provider. For the duration of the visit, the provider was performing the assessment from a different facility than the patient. This includesuse of bluetooth stethoscope forauscultationperformed by the telepresenter that the telemedicine provider can hear if described in the physical exam. Benefits Consulting Analyst contact information: Please call [facility] Call Center [phone]. (Phone Number For Physician Use Only) After establishing a telemedicine visit, patient was: Patient was verified with two unique identifiers, Patient/authorized rep acknowledged consent and understanding and Gave permission to continue telehealth session Time Spent with Patient: Initial => 75 min History of Present Illness Reason for Consultation: Corynebacterium bacteremia with s/o sepsis Attending Physician: Greta Williamson MD History of Present Illness 68yo F with h/o diabetes, asthma, Lyme disease, HLD, vertigo who presented on 08/10 with worsening left leg redness with new lymphangitic streaking up the leg. She initially developed LLE redness after injuring it on a shopping cart over the weekend. She denied any open wounds. She was seen in the ED on 08/07 and was given keflex. She was also brought back to the ED due to BCX positive, which was GPR. Given likely contamination, she was sent back home. The redness became worse and spread up the medial part of the leg on 08/09 evening so she returned. She did take keflex for her cellulitis. Also with h/o shingles. She had a low grade temp on 08/08 up to 100.5, nausea and headache. Here she has been afebrile, vss. WBC wnl. Cr 0.49, LFT wnl. ESR 37, CRP 10.36. UA negative. MRSA screen neg. CXR negative. TTE negative for vegetations. She was started on vancomycin, but developed redness and itching of face when it was started so changed to daptomycin. ID consulted 08/11. On evaluation, patient reports significant improvement in her leg. She says she had a pedicure on Tuesday at which time they nicked her big toe. Also had a sore throat on , which has now resolved. No abdominal pain, vomiting, diarrhea. Allergies Allergy/AdvReac Type Severity Reaction Status Date / Time codeine AdvReac Unknown NAUSEA Verified 08/10/23 12:24 vancomycin AdvReac Redness of Verified 08/11/23 23:54 Skin Home Medications Medication Instructions Recorded Confirmed Type cholecalciferol (vitamin D3) 125 5,000 units PO QPM 11/28/18 08/11/23 History mcg (5,000 unit) capsule magnesium 250 mg tablet 500 mg PO QPM 06/08/21 08/11/23 History acetaminophen 500 mg tablet 500 mg PO QID PRN Pain 08/18/21 08/11/23 History thiamine HCl (vitamin B1) 500 mg 500 mg PO DAILY 12/22/21 08/11/23 History tablet fluticasone propionate 50 2 spray intranasal QPM #16 grams 12/23/22 08/11/23 Rx mcg/actuation nasal spray,suspension albuterol sulfate 2.5 mg/3 mL 2.5 mg (3 mL) inhalation QID PRN 02/15/23 08/11/23 Rx (0.083 %) solution for nebulization shortness of breath or wheezing #90 mL albuterol sulfate 90 mcg/actuation 2 inh inhalation QID PRN shortness 02/15/23 08/11/23 Rx aerosol inhaler (Ventolin HFA) of breath or wheezing #8.5 grams cephalexin 500 mg capsule 500 mg PO Q6H 08/10/23 08/11/23 History meclizine 25 mg tablet 25 mg PO TID PRN vertigo 08/10/23 08/11/23 History Patient History Medical History Umbilical hernia Vertigo takes meclizine nightly for vertigo Lyme disease Diabetes pt states does not take metformin, states diet controlled Ocular migraine Asthma mild- uses inhalers occasionally- mostly seasonal allergy induced Diverticulosis Surgical History History of tubal ligation History of hysterectomy Family History Sister Diabetes Grandmother Diabetes Mother Hypertension Father Lymphoma Denies family history of Ovarian cancer Prostate cancer Myocardial infarction Breast cancer Colorectal cancer Social History Smoking Status: Never smoker Second Hand Exposure: No; Do You Dip or Chew Tobacco: No; Hx Alcohol Use: No Hx Substance Use: No Preferred Language: Slovak Communication Ability: Effective Visual Impairment: Limited Hearing Ability: Normal Line Fixer Required: No Beliefs That Will Affect Care: None marital status: Current Living Situation: Spouse current occupational status: retired How many Children do You have: 2 Feels Safe at Home: Yes Safety Concerns: Feels Safe At This Time Childhood Exposure to Second-Hand Smoke: No Diet: regular caffeine: Yes (coffee) during the past year weight has: remained stable Dental Care, Regularly: Yes Physical Activity Frequency: Daily Physical Activity Frequency Comment: Walking Seatbelt Use: always Sunscreen Use: Yes (sometimes) Assistive Devices: Glasses Review of System 10-point review of systems reviewed and are negative except for as above. Physical Exam Physical Exam: General: Awake, alert, no acute distress HEENT: NC/AT, EOMI, mmm Neck: supple Lungs: respirations non-labored Heart: nl peripheral perfusion Abdomen: soft, NT/ND Ext: improving erythema of left leg, no open wounds Neuro: moving all extremities Results & Data Vital Signs (Past 12 Hours) Vital Signs Temp Pulse Resp BP Pulse Ox O2 Del Method 08/12/23 08:00 Room Air 08/12/23 07:27 36.9 C 60 16 131/68 96 Room Air Laboratory Results Labs reviewed. Diagnostic Findings Imaging reviewed.
--- NOTE | 2023-08-12 16:38 | Hospitalist Progress Note ---
Date of Service August 12, 2023 Assessment & Plan (1) Cellulitis of left leg: Plan: Patient reportedly hit her left lower leg on a shopping cart on 08/07, then developed erythema and warmth with lymphangitic streaking Hx of LLE cellulitis without broken skin CRP and ESR elevated Zosyn 4.5 g IV x 1 in the ED Blood culture drawn on 08/07 growing gram (+) bacilli Resulted in cornybacterium; no sensitivities to follow; ?contaminant Was initially covered with vancomycin, however developed "red man" syndrome. Discontinued. Switched to daptomycin with very good response Consulted infectious disease to see if the Corynebacterium bacteremia is true infection. Infectious disease thinks it is a contaminant. I will discontinue daptomycin and switch to p.o. doxycycline today Acetaminophen as needed for pain/fever A.m. CBC, BMP, CRP, Mag (2) Bacteremia: Plan: No leukocytosis; afebrile Procalcitonin WNL Lactate WNL Per infectious disease this was a contaminant (3) History of shingles: Plan: Patient reports history of shingles x 3 on the left side of her body While current lymphangitic streaking does not follow a characteristic dermatome, shingles remains in the DDx at this time Could elevate inflammatory markers, and patient reports she did not break her skin on the shopping cart This is not shingles. It has almost resolved with no vesicles seen. (4) Diabetes: Plan: Last A1c at 6.9% on 07/25/2023 Patient has declined metformin and other DM drugs in the past (per review of wellness visit on 07/01/2023) Loose SSI while inpatient with target BSG range 110-140mg/dL, CF 50, carb ratio 15 T2DM diet BSG ACHS Adjust regimen as needed (5) Vertigo: Plan: Meclizine as needed Plan Disposition: Admit to [facility] Full code T2DM diet VTE PPx: Lovenox 40 mg SQ q24h Likely discharge tomorrow Admission and Anticipated Discharge Date Admission Date: August 11, 2023 Subjective Patient feels much better overall. Overnight, she developed "red man" syndrome in response to vancomycin. Vancomycin was discontinued. She was given a dose of IV daptomycin to which she had very good response. Review of Systems Review of Systems: All systems reviewed & are unremarkable except as noted in Subjective Physical Exam Physical Exam: General: Awake, conversant Heart: S1, S2/regular rate and rhythm, no murmur rubs or gallops Lungs: Clear to auscultation bilaterally. Normal effort Abdomen: Soft/nontender/nondistended. No hepatosplenomegaly Extremities: No clubbing/cyanosis. No edema Behavior: Appropriate, cooperative Results & Data Results & Data Vital Signs (Past 12 Hours) Vital Signs Temp Pulse Resp BP Pulse Ox O2 Del Method 08/12/23 14:49 36.1 C L 68 18 162/72 H 97 Room Air 08/12/23 14:44 36.6 C 63 16 162/69 H 94 Room Air 08/12/23 08:00 Room Air 08/12/23 07:27 36.9 C 60 16 131/68 96 Room Air PG Care Time/CCT Total # of Minutes Spent Total Time Spent with Patient: Total time spent is greater than 50% in coordination of care (as documented) at patient's floor/unit and/or counseling patient: Coding Level of Care Code 33772 SUB INP/OBS CARE 2/35MIN Diagnoses Cellulitis of left leg L03.116 Bacteremia R78.81 History of shingles Z86.19 Diabetes E11.9 Vertigo R42
[2023-08-12] MEDS: DOXYCYCLINE HYCLATE 100 MG CAP PO SCH (20:06)
[2023-08-13 07:15] LABS: Basophils # (auto) 0.05 K/uL (0.00-0.20); Basophils % (auto) 0.7 %; Eosinophils % (auto) 4.4 %; Hematocrit (blood only) 35.3 % (37.0-47.0); Immature Granulocytes # (auto) 0.02 K/uL (0.01-0.20); Immature Granulocytes % (auto) 0.3 %; Lymphocytes # (auto) 2.45 K/uL (1.20-3.40); Lymphocytes % (auto) 35.6 %; Mean Corpuscular Hemoglobin 31.7 pg (25.0-34.0); Mean Corpuscular Volume 93.4 fL (80.0-100.0); Mean Platelet Volume 8.7 fL (9.4-12.4); Monocytes # (auto) 0.65 K/uL (0.11-0.59); Monocytes % (auto) 9.4 %; Neutrophils # (auto) 3.42 K/uL (1.40-6.50); Neutrophils % (auto) 49.6 %; Platelet Count 324 K/uL (130-400); RDW Coefficient of Variation 13.3 % (11.5-14.5); RDW Standard Deviation 45.8 fL (36.4-46.3); Red Blood Count 3.78 M/uL (4.20-5.40); White Blood Count 6.89 K/ul (4.8-10.8)
[2023-08-13 07:54] LABS: BUN Creatinine Ratio 29.6 (10-20); C Reactive Protein 5.16 mg/dl (0-0.5); Calcium 9.5 mg/dl (8.6-10.3); Creatinine Clr Calc Pharmacy 99.1 ml/min; Est GFR (African American) 111.6 ml/min; Est GFR (Non-African American) 96.3 ml/min; Magnesium 1.9 mg/dl (1.7-2.4); Potassium 4.5 mmol/L (3.5-5.1)
--- NOTE | 2023-08-13 09:47 | Discharge Summary ---
Date of Service August 13, 2023 Admission HPI Per Admitting Provider Sofia is a pleasant 68-year-old female with PMH of diabetes mellitus, vertigo, tinnitus, allergic rhinitis, asthma, HLD, and Lyme disease. She presented to the ED on 08/10 for worsening cellulitis on her left leg with new lymphangitic streaking up the leg. Patient initially developed erythema on her LLE after striking her leg on a shopping cart over the weekend. She denies any breaks in skin or open skin. The erythema then worsens and began to spread up the medial aspect of her left upper leg the evening of 08/09. She applied Biofreeze to the skin, which did help with her pain. She also reports she has been in the ED on 08/07 and 08/09 and received IV antibiotics at those times; blood cultures drawn on 08/07 grew gram-positive bacilli, and patient was called and told to come to the ED for IV antibiotics. Patient took 1 dose of Keflex this morning around 0 630; she does not take any regular medications in the mornings. All of her medications are as needed. She relays a history of left lower extremity cellulitis in the past, mainly on the dorsal aspect of her left foot. In the past she has not needed to break skin for it to develop. She also relays a history of shingles x 3 always occurring on the left side of her body; mainly on the stomach, but 1 episode on the left posterior scalp. Associated symptoms include 1 episode of fever on Tuesday 08/08; temperature of 100.5 F; associated achiness, nausea, and headache. Patient denies vomiting, and reports that taking 2 Tylenol alleviated the fever. She also endorses some right neck pain, but believes it is secondary to sleeping on it poorly. She took 2 Tylenol this morning as well for 7/10 neck pain. No difficulty swallowing. No throat closure. She characterizes the pain in her left leg as a dull, achy pain; 2/10 at present; only hurts when moving/palpating. Patient denies smoking, tobacco use, and recent alcohol use. Patient is mildly hypertensive at 147/86 and bradycardic at 55 bpm at time of admission; vitals otherwise stable. ED course: Zosyn 4.5 g IV ROS: Patient endorses fever, chills, STRINGER, right-sided neck pain, nausea, and mild erythema/pain in the left leg. Patient denies night-sweats, dizziness, lightheadedness with walking, difficulty swallowing, swelling of right neck/throat closure, chest pain, chest palpitations, SOB, cough, wheezing, abdominal pain, vomiting, diarrhea, change in urinary/bowel habits, dysuria, burning with urination, blood in the urine/stool, or numbness/tingling in the legs. Admission Exam Per Admitting Provider General: no acute distress; pleasant affect; non-toxic appearing; well- nourished; cooperative; SpO2 97% on RA HEENT: normocephalic, atraumatic; no scleral icterus; PERRLA; moist mucus membrane; vision and hearing grossly intact Neck: supple; no lymphadenopathy; trachea midline; right side of neck is NTP Skin: warm, dry without signs of tenting; no cyanosis CV: chest wall NTP; RRR; S1/S2 normal; no murmurs/rubs/gallops; pulses intact and symmetric at radial, DP, and PT Lungs: no acute respiratory distress; symmetrical chest wall expansion; clear breath sounds across all lung martins w/o adventitious sounds; no wheezing ABD: Soft, NTP; BS present; no rebound/guarding; no distention MSK: no tics or fasciculations; patient demonstrates ability to wiggle toes, plantarflex/dorsiflex bilaterally Left leg: LLE is warm to touch, with erythema and lymphangitic streaking up the medial side of the leg (see photos below); left foot is neurovascularly intact Right leg: Unremarkable Neuro: A&Ox3; normal mood and affect; fluent speech; no focal deficits; sensation intact and symmetric in the LEs b/l Principal Diagnosis Left leg cellulitis Corynebacterium in blood culture, thought to be a contaminant rather than bacteremia Discharge Exam General: Awake, conversant Heart: S1, S2/regular rate and rhythm, no murmur rubs or gallops Lungs: Clear to auscultation bilaterally. Normal effort Abdomen: Soft/nontender/nondistended. No hepatosplenomegaly Extremities: No clubbing/cyanosis. No edema Behavior: Appropriate, cooperative Discharge Data Allergies Allergy/AdvReac Type Severity Reaction Status Date / Time codeine AdvReac Unknown NAUSEA Verified 08/10/23 12:24 vancomycin AdvReac Redness of Verified 08/11/23 23:54 Skin Consultations 08/11/23 10:09 ED Decision to Admit Stat 08/12/23 12:33 Consult Infectious Diseases Routine Hospital Course (1) Cellulitis of left leg: Patient reportedly hit her left lower leg on a shopping cart on 08/07, then developed erythema and warmth with lymphangitic streaking Hx of LLE cellulitis without broken skin CRP and ESR elevated Zosyn 4.5 g IV x 1 in the ED Blood culture drawn on 08/07 growing gram (+) bacilli Resulted in cornybacterium; no sensitivities to follow; ?contaminant Was initially covered with vancomycin, however developed "red man" syndrome. Discontinued. Switched to daptomycin with very good response Consulted infectious disease to see if the Corynebacterium bacteremia is true infection. Infectious disease thinks it is a contaminant. Discontinued daptomycin and switched to p.o. doxycycline Cellulitis has completely resolved. Will discharge on doxycycline to complete a course (2) Bacteremia: No leukocytosis; afebrile Procalcitonin WNL Lactate WNL Per infectious disease this was a contaminant (3) History of shingles: Patient has a history of shingles The lesion in her leg is not shingles. It has almost resolved with no vesicles seen. (4) Diabetes: Last A1c at 6.9% on 07/25/2023 Patient has declined metformin and other DM drugs in the past (per review of wellness visit on 07/01/2023) Loose SSI while inpatient with target BSG range 110-140mg/dL, CF 50, carb ratio 15 T2DM diet BSG ACHS Adjust regimen as needed (5) Vertigo: Meclizine as needed Plan Discharge to home today Total Time Total Time Spent Total Time Spent (In Minutes): 35 Discharge Plan Discharge Items Patient Disposition: Home - Self-Care Reason For Visit: LEFT LEG INJURY/CELLULITIS Discharge Diagnosis: Left leg cellulitis Corynebacterium in blood culture, thought to be a contaminant rather than bacteremia Activity: Resume your previous activity Non-emergency contact: Primary Care Provider Call non-emergency contact if: you have any medication questions and your symptoms worsen Follow-up/Referrals: Julieta Marino CRNP [Primary Care Provider] - 08/19/23 12:00 pm Diet: Carb Consistent or DM2 and Heart Healthy Addtl Attending Provider Instructions: Advised to follow-up with PCP in 1 week Pending Studies at Discharge: No Stand-Alone Forms: My [facility] Medications and DC Order Prescriptions: New doxycycline hyclate 100 mg Capsule 100 mg PO BID 4 Days Qty: 8 0RF Continued albuterol sulfate [Ventolin HFA] 90 mcg/actuation HFA aerosol inhaler 2 inh INH QID PRN (Reason: shortness of breath or wheezing) Qty: 8.5 3RF albuterol sulfate 2.5 mg /3 mL (0.083 %) solution for nebulization 2.5 mg inhalation QID PRN (Reason: shortness of breath or wheezing) Qty: 90 3RF cholecalciferol (vitamin D3) 5,000 unit capsule 5,000 units PO QPM fluticasone propionate 50 mcg/actuation spray,suspension 2 spray INTNAS QPM Qty: 16 11RF Rx Instructions: administer into each nostril magnesium 250 mg tablet 500 mg PO QPM thiamine HCl (vitamin B1) 500 mg tablet 500 mg PO DAILY acetaminophen 500 mg Tablet 500 mg PO QID PRN (Reason: Pain) meclizine 25 mg tablet 25 mg PO TID PRN (Reason: vertigo) Rx Instructions: 25 mg PO TAKE 1 TABLET DAILY, MAY INCREASE TO 3 TIMES DAILY IF NEEDED FOR VERTIGO. PRN; Discontinued cephalexin 500 mg capsule 500 mg PO Q6H Rx Instructions: Start Date 08/09/23 x 10 day supply Discharge Orders: Discharge Order (Routine); Ordered 08/13/23 Ordered By: Greta Whittaker/Other Patient Handouts: Doxycycline Oral Capsule Admission Data Admit Date/Time: 08/11/23 11:00 Attending Provider: Greta Williamson Admit Provider: Wesley Escobar Primary Care Provider: Julieta Marino Other Providers: Wesley Escobar Other Interventions: Discharge Summary Assessment (RN) Last Done: 08/13/23 10:02 Coding Level of Care Code 50655 INP/OBS DISCH >30 MIN Diagnoses Cellulitis of left leg L03.116 Bacteremia R78.81 History of shingles Z86.19 Diabetes E11.9 Vertigo R42
== END 2023-08-13 12:16 | disposition home or self-care (01) | DRG 603 ==
LOC: ED 07:37 → SUATTDRO 11:00 → EDINP 11:00 → 3N 15:00